=== PATIENT | male | born 1975 | race Caucasian/White ===

== ENCOUNTER 2022-06-21 14:54 | Emergency (ER) | payer OTHER, SELFPAY ==
[2022-06-21 15:09] VITALS: BP 140/98; PULSE 90; RESP 16; TEMP 36.4; O2SAT 100
--- NOTE | 2022-06-21 16:29 | ED.GENADULT ---
HPI - General Adult General Chief complaint: Skin/Abscess/Foreign Body Stated complaint: allergic reaction Time Seen by Provider: 06/21/22 16:18 Source: RN notes reviewed History of Present Illness HPI narrative: Patient presents emergency room from home for allergic reaction. Patient states that evening he received a sugar in the mail from [employer] he states he tried this Cheron at that time and fell asleep in the short. Patient states the next morning he woke up with diffuse urticaria that was itchy in nature he states that initially was all over his torso and back but is now located primarily into his ankles. He states he has been taking Benadryl and it has helped with urticaria on his back he denies any swelling of the lips or tongue denies any shortness of Related Data Allergies Allergy/AdvReac Type Severity Reaction Status Date / Time No Known Allergies Allergy Unverified 07/31/14 18:05 Review of Systems Review of Systems: Gen.: Denies fevers or chills ENT: Denies swelling of lips or tongue Respiratory: Denies shortness of breath or cough CV: Denies chest pain or palpitations GI: Denies abdominal pain nausea, emesis Musculoskeletal: Denies back pain or muscle pain Neuro: Denies numbness, tingling, weakness or focal weakness Skin: See HPI Except as documented, all other systems reviewed and negative PMFSH Past Medical History Medical History (Updated 06/21/22 @ 16:32 by Mark Courtney DO) Hypertension Family History Family History (Updated 06/20/16 @ 23:21 by DOCTOR UNKNOWN) Mother Patient's mother is in good health Family history of hyperthyroidism Sibling Patient's brother is in good health Social History Social History Smoking status: Current every day smoker Second hand tobacco smoke exposure: Yes Alcohol intake: current Exam Narrative: APPEARANCE: No acute distress, nontoxic, resting in bed EYES: EOMI HEENT: Normocephalic, atraumatic, no swelling of the lips or tongue RESPIRATORY: No respiratory distress Clear to auscultation bilaterally with no rhonchi wheezing or rales. CARDIOVASCULAR: Regular rate and rhythm without murmurs rubs or gallops. MUSCULOSKELETAl: Moves all extremities. No clubbing, cyanosis or edema. NEURO: Awake and alert. Following commands, speech normal, no focal deficits SKIN:: Warm, dry. Urticaria around the bilateral ankles no other urticaria seen PSYCHIATRIC: Normal affect/mood, Course Course Emergency Course: Discussed with patient results of workup and diagnosis. Discussed need for follow-up with primary care, proper use of medication, and reasons to return to the emergency department. Patient understands and agrees to current treatment plan Vital Signs Vital signs: Vital Signs Temperature 97.5 F L 06/21/22 15:09 Pulse Rate 90 06/21/22 15:09 Respiratory Rate 16 06/21/22 15:09 Blood Pressure 140/98 H 06/21/22 15:09 Pulse Oximetry 100 06/21/22 15:09 Oxygen Delivery Room Air 06/21/22 15:09 Temperature 97.5 F L 06/21/22 15:09 Pulse Rate 90 06/21/22 15:09 Respiratory Rate 16 06/21/22 15:09 Blood Pressure 140/98 H 06/21/22 15:09 Pulse Oximetry 100 06/21/22 15:09 Oxygen Delivery Room Air 06/21/22 15:09 Medical Decision Making Vital Signs Vital Signs: Vital Signs Temperature 97.5 F L 06/21/22 15:09 Pulse Rate 90 06/21/22 15:09 Respiratory Rate 16 06/21/22 15:09 Blood Pressure 140/98 H 06/21/22 15:09 Pulse Oximetry 100 06/21/22 15:09 Oxygen Delivery Room Air 06/21/22 15:09 Temperature 97.5 F L 06/21/22 15:09 Pulse Rate 90 06/21/22 15:09 Respiratory Rate 16 06/21/22 15:09 Blood Pressure 140/98 H 06/21/22 15:09 Pulse Oximetry 100 06/21/22 15:09 Oxygen Delivery Room Air 06/21/22 15:09 Discharge Plan Discharge Clinical Impression: Allergic reaction Patient Disposition: Home, Self-Care Condit
[2022-06-21] MEDS: predniSONE 20 MG TABLET 60 MG PO (16:30)
[2022-06-21] MEDS: FAMOTIDINE 20 MG TABLET PO (16:31)
[2022-06-21] MEDS: LORATADINE 10 MG TABLET PO (16:33)
== END 2022-06-21 16:44 | disposition home or self-care (01) ==
LOC: ANHED 16:40
PROVIDERS: Emergency Provider Emergency Medicine
DX: T78.40XA Allergy, unspecified, initial encounter (principal); I10 Essential (primary) hypertension; F17.200 Nicotine dependence, unspecified, uncomplicated
CPT/HCPCS: 99283; A9270; J7512